=== PATIENT | male | born 1960 | race African-American/Black ===

== ENCOUNTER 2020-06-28 17:39 | Emergency (ER) | payer OTHER ==
[2020-06-28] MEDS ORDERED: Boostrix 0.5 ML (Tdap) VIAL ONE (17:59)
[2020-06-28] MEDS ORDERED: Cephalexin 500 MG CAP ONE (17:59)
[2020-06-28] MEDS ORDERED: Bacitracin 1 PK ONE (18:13)
--- NOTE | 2020-06-28 18:42 | RAD ---
TWO VIEWS OF THE RIGHT TOES: 06/28/20 COMPARISON: None. HISTORY: Injury, trauma, pain. FINDINGS: There are obliquely oriented mildly displaced fractures involving the third and fourth proximal phala nges. The distal aspect of the third digit is not optimally assessed secondary to flexion. IMPRESSION: Fracture deformities involving the third and fourth proximal phalanges with mild displacement. POS: [facility]
== END 2020-06-28 18:37 | disposition home or self-care (01) ==
LOC: MADERS 17:39
DX: S92.511A Displaced fracture of proximal phalanx of right lesser toe(s), initial encounter for closed fracture (principal); I10 Essential (primary) hypertension; Z79.899 Other long term (current) drug therapy; W50.1XXA Accidental kick by another person, initial encounter; Y93.72 Activity, wrestling
CPT/HCPCS: 28510; 90471; 90715